=== PATIENT | female | born 1995 | race Caucasian/White ===

== ENCOUNTER 2017-04-14 23:39 | Emergency (ER) | payer SELFPAY ==
--- NOTE | 2017-04-15 01:13 | PDOC ---
History of Present Illness - General Chief Complaint: Edema Stated Complaint: FATIGUE, INFLAMATION Time Seen by Provider: 04/15/17 01:02 History Source: Patient - History of Present Illness Initial Comments: 04/15/17 01:52 Patient is a 21-year-old female with no past medical history who presents to the emergency department today complaining of swollen hands and feet, and pain in her extremities. Patient states that her symptoms started approximately 10: 30 tonight. This is never happened to her before. She states that her feet and hands are quite swollen and it hurts to stand. She also endorses itching, chills redness around her hands and feet. Patient denies new foods, shortness of breath, difficulty breathing, swelling of her throat, new medications. She also states that she has some abdominal pain. Denies fevers, cough, wheezing, shortness of breath, chest pain, palpitations, and nausea, vomiting, diarrhea, frequency, urgency and hematuria. She states her last menstrual cycle started on April 03. Past History - Travel Traveled outside of the country in the last 30 days: No Close contact w/someone who was outside of country & ill: No - Past Medical History Allergies/Adverse Reactions: Allergies Allergy/AdvReac Type Severity Reaction Status Date / Time No Known Allergies Allergy Verified 04/15/17 01:30 Home Medications: Ambulatory Orders Nitrofurantoin Monohyd/M-Cryst [Macrobid -] 100 mg PO BID #14 capsule 04/15/17 Review of Systems - Review of Systems Able to Perform ROS?: Yes Is the patient limited [place] proficient: No Constitutional: Yes: Chills, Malaise. No: Fever, Weakness Respiratory: No: Cough, Shortness of Breath, Wheezing Cardiac (ROS): No: Chest Pain, Palpitations ABD/GI: No: Diarrhea, Nausea, Vomiting : No: Burning, Dysuria, Discharge, Frequency, Flank Pain Musculoskeletal: Yes: Muscle Pain (generalized) Integumentary: Yes: Erythema (in patches on hands and feet), Pruritus (diffuse , arms and legs b/l) Neurological: No: Headache, Numbness, Paresthesia, Weakness *Physical Exam - Physical Exam Comments: 04/15/17 01:12 GENERAL: Well developed, well nourished. AAOX3. Mild distress, laying on exam bed breathing easily HEENT: Normocephalic, atraumatic. PERRLA, EOMI. No conjunctival pallor. Sclera are non- icteric. Moist mucous membranes. Oropharynx is clear. NECK: Supple. Full ROM. No JVD. Carotid pulses 2+ and symmetric, without bruits. No thyromegaly. No lymphadenopathy. CARDIOVASCULAR: Regular rate and rhythm. No murmurs, rubs, or gallops. Distal pulses are 2+ and symmetric. PULMONARY: No evidence of respiratory distress. Lungs clear to auscultation bilaterally. No wheezing, rales or rhonchi. ABDOMINAL: RUQ pain Soft. Non-tender. Non-distended. No rebound or guarding. No organomegaly. Normoactive bowel sounds. MUSCULOSKELETAL Normal range of motion at all joints. No bony deformities or tenderness. No CVA tenderness. EXTREMITIES: Hands and feet are grossly swollen 2+ tense edema with surrounding patches of erythema. No cyanosis. No clubbing. No calf tenderness. SKIN: Warm and dry. Normal capillary refill. No rashes. No jaundice. NEUROLOGICAL: Alert, awake, appropriate. Cranial nerves 2-12 intact. No deficits to light touch and temperature in face, upper extremities and lower extremities. No motor deficits in the in face, upper extremities and lower extremities. Normoreflexic in the upper and lower extremities. Normal speech. Toes are down- going bilaterally. Gait is normal without ataxia. PSYCHIATRIC: Cooperative. Good eye contact. Appropriate mood and affect. ED Treatment Course - LABORATORY CBC & Chemistry Diagram: 04/15/17 01:40 04/15/17 01:40 Medical Decision Making - Medical Decision Making 04/15/17 02:18 Patient is a 21-year-old female with no past medical history who presents to the emergency department today complaining of swollen hands and feet, and pain in her extremities. There is no known exposure to an allergen, making an ALLERGIC reaction less likely however patient does have swelling to hands and feet with itching. Cannot rule out liver disease or kidney disease at this time as source of her swelling and itching. 1.CBC, CMP, UA, UC, lipase 2.Benadryl 3.IV fluids, RUQ US in AM 4.reevaluate 04/15/17 03:21 UA shows positive leukocytes with WBC. Pt. does have a UTI at this time. Will treat for UTI as an out patient if patient is safe for discharge. Will wait for RUQ Us in AM for dispo decision. Pt. had minimal improvement with benadryl. *DC/Admit/Observation/Transfer Diagnosis at time of Disposition: UTI (urinary tract infection) Qualifiers: Urinary tract infection type: acute cystitis Hematuria presence: without hematuria Qualified Code(s): N30.00 - Acute cystitis without hematuria - Discharge Dispostion Disposition: HOME Condition at time of disposition: Improved - Prescriptions Prescriptions: Nitrofurantoin Monohyd/M-Cryst [Macrobid -] 100 mg PO BID #14 capsule - Patient Instructions Printed Discharge Instructions: DI for Urinary Tract Infection (UTI) Additional Instructions: Please take antibiotics as prescribed starting today. Follow bland soft diet for the next 3 days. May take Tylenol or Motrin for discomfort. Avoid excessive salt intake.
[2017-04-15] MEDS ORDERED: SODIUM CHLORIDE 1,000 ML IV STA (01:14)
[2017-04-15 01:29] VITALS: BMI 28.2
[2017-04-15 01:57] LABS: BASOPHIL 0.2 % (0-2.0); EOSINOPHIL 0.9 % (0-4.5); MCH 29.7 pg (25.7-33.7); MCHC 33.2 g/dl (32.0-36.0); MEAN CELL VOLUME 89.5 fl (80-96); MEAN PLT VOLUME 7.5 fl (7.5-11.1); NEUTROPHILS 68.1 % (42.8-82.8); PLATELET COUNT 316 K/MM3 (134-434); RDW 13.4 % (11.6-15.6); WHITE BLOOD COUNT 9.4 K/mm3 (4.0-10.0)
[2017-04-15 02:19] LABS: URINE APPEARANCE SLCLOUDY; URINE BILIRUBIN NEGATIVE (NEGATIVE); URINE BLOOD NEGATIVE (NEGATIVE); URINE COLOR YELLOW; URINE GLUCOSE (UA) NEGATIVE (NEGATIVE); URINE KETONE NEGATIVE (NEGATIVE); URINE NITRITE NEGATIVE (NEGATIVE); URINE PROTEIN NEGATIVE (NEGATIVE); URINE UROBILINOGEN NEGATIVE mg/dL (0.2-1.0)
[2017-04-15 02:27] LABS: URINE LEUK ESTERASE 1+ (NEGATIVE)
[2017-04-15 02:29] LABS: ALBUMIN 3.6 g/dl (3.4-5.0); ALK PHOS 68 U/L (45-117); ANION GAP 10 (8-16); BILIRUBIN,TOTAL 0.4 mg/dL (0.2-1.0); CALCIUM 8.9 mg/dL (8.5-10.1); CO2 26 mmol/L (21-32); CREATININE 0.5 mg/dL (0.55-1.02); GLUCOSE,RANDOM 82 mg/dL (74-106); SGOT/AST 12 U/L (15-37); SGPT/ALT 7 U/L (12-78); TOT PROT 6.5 g/dl (6.4-8.2)
[2017-04-15 02:30] LABS: URINE HYALINE CAST 3 /lpf; URINE MUCUS FEW; URINE RBC 1 /hpf (0-3); URINE WBC 13 /hpf (3-5)
--- NOTE | 2017-04-15 03:10 | PDOC ---
Attending Attestation - Resident Resident Name: ZaidasashaKelsie - ED Attending Attestation I have performed the following: I have examined & evaluated the patient, The case was reviewed & discussed with the resident, I agree w/resident's findings & plan, Exceptions are as noted - HPI HPI: 04/15/17 03:10 21-year-old female with no medical history presents to the emergency department with itchiness of her feet and hands and subjective feeling of lower extremity and bilateral hands nonpitting edema. Stated this began today. Denies any traveling or exposures to bugs or traveling through [place]. Denies fevers or chills. Patient was also developing right upper quadrant abdominal pain and had an episode of nausea or vomiting. Came into the ED for further evaluation. - Physicial Exam PE: 04/15/17 03:11 GENERAL: Awake, alert, and fully oriented, in no acute distress. HEAD: No signs of trauma EYES: PERRLA, EOMI, sclera anicteric, conjunctiva clear ENT: Auricles normal inspection, hearing grossly normal, nares patent, oropharynx clear without exudates. NECK: Normal ROM, supple, no lymphadenopathy, JVD, or masses LUNGS: Breath sounds equal, clear to auscultation bilaterally. No wheezes, and no crackles HEART: Regular rate and rhythm, normal S1 and S2, no murmurs, rubs or gallops ABDOMEN: TTP RUQ. Blackman positive. Soft, normoactive bowel sounds. No guarding , no rebound. No masses EXTREMITIES: Normal range of motion, no edema. No clubbing or cyanosis. No cords, erythema, or tenderness NEUROLOGICAL: Cranial nerves II through XII grossly intact. Normal speech, normal gait SKIN: Warm, Dry, normal turgor, no rashes or lesions noted. - Medical Decision Making 04/15/17 03:12 Vital Signs Temp Pulse Resp BP Pulse Ox 97.2 F L 77 16 104/73 98 04/15/17 01:25 04/15/17 01:25 04/15/17 01:25 04/15/17 01:25 04/15/17 01:25 The patient has been complaining about some itchiness which is unclear of the etiology. However, with the itchiness and a right upper quadrant pain with nausea, we'll need to rule out biliary pathology. We'll obtain a right upper quadrant ultrasound. Labs reviewed which demonstrates no acute findings. We'll reassess and dispose per imaging. 04/15/17 05:03 CBC, BMP 04/15/17 01:40 04/15/17 01:40 CMP Sodium 140 mmol/L (136-145) 04/15/17 01:40 Potassium 4.2 mmol/L (3.5-5.1) 04/15/17 01:40 Chloride 104 mmol/L (98-107) 04/15/17 01:40 Carbon Dioxide 26 mmol/L (21-32) 04/15/17 01:40 Anion Gap 10 (8-16) 04/15/17 01:40 BUN 15 mg/dL (7-18) 04/15/17 01:40 Creatinine 0.5 mg/dL (0.55-1.02) L 04/15/17 01:40 Creat Clearance w eGFR > 60 (>60) 04/15/17 01:40 Random Glucose 82 mg/dL (74-106) 04/15/17 01:40 Calcium 8.9 mg/dL (8.5-10.1) 04/15/17 01:40 Total Bilirubin 0.4 mg/dL (0.2-1.0) 04/15/17 01:40 AST 12 U/L (15-37) L 04/15/17 01:40 ALT 7 U/L (12-78) L 04/15/17 01:40 Alkaline Phosphatase 68 U/L (45-117) 04/15/17 01:40 Total Protein 6.5 g/dl (6.4-8.2) 04/15/17 01:40 Albumin 3.6 g/dl (3.4-5.0) 04/15/17 01:40 Lipase 131 U/L (73-393) 04/15/17 02:58 Urine Test Results Urine Color Yellow 04/15/17 02:06 Urine Appearance Slcloudy 04/15/17 02:06 Urine pH 6.0 (5.0-8.0) 04/15/17 02:06 Urine Protein Negative (NEGATIVE) 04/15/17 02:06 Urine Glucose (UA) Negative (NEGATIVE) 04/15/17 02:06 Urine Ketones Negative (NEGATIVE) 04/15/17 02:06 Urine Blood Negative (NEGATIVE) 04/15/17 02:06 Urine Nitrite Negative (NEGATIVE) 04/15/17 02:06 Urine Bilirubin Negative (NEGATIVE) 04/15/17 02:06 Ur Leukocyte Esterase 1+ (NEGATIVE) H 04/15/17 02:06 Urine RBC 1 /hpf (0-3) 04/15/17 02:06 Urine WBC 13 /hpf (3-5) 04/15/17 02:06 Ur Epithelial Cells Rare /hpf (FEW) 04/15/17 02:06 Urine Mucus Few 04/15/17 02:06 Patient's urine demonstrates 1+ leukocytes and 13 WBCs. Good the patient's discomfort be secondary to cystitis. We'll consider treatment for this patient' s symptoms. Laboratory demonstrates no acute findings. If the right upper quadrant ultrasound demonstrates no acute findings and the patient reports feeling better, we'll consider discharge patient with oral antibiotics and have patient follow up as an outpatient. 04/15/17 06:26 Pt reports feeling much better after the benadryl. Abdominal pain improved.
--- NOTE | 2017-04-15 07:20 | PDOC ---
*Physical Exam - Vital Signs Last Vital Signs Temp Pulse Resp BP Pulse Ox 97.2 F L 77 16 104/73 98 04/15/17 01:25 04/15/17 01:25 04/15/17 01:25 04/15/17 01:25 04/15/17 01:25 ED Treatment Course - LABORATORY CBC & Chemistry Diagram: 04/15/17 01:40 04/15/17 01:40 - ADDITIONAL ORDERS Additional order review: Laboratory Results 04/15/17 04/15/17 04/15/17 02:58 02:06 02:06 Sodium Potassium Chloride Carbon Dioxide Anion Gap BUN Creatinine Creat Clearance w eGFR Random Glucose Calcium Total Bilirubin AST ALT Alkaline Phosphatase Total Protein Albumin Lipase 131 Urine Color Yellow Urine Appearance Slcloudy Urine pH 6.0 Urine Protein Negative Urine Glucose (UA) Negative Urine Ketones Negative Urine Blood Negative Urine Nitrite Negative Urine Bilirubin Negative Urine Urobilinogen Negative Ur Leukocyte Esterase 1+ H Urine RBC 1 Urine WBC 13 Ur Epithelial Cells Rare Hyaline Casts 3 Urine Mucus Few Urine HCG, Qual Negative 04/15/17 01:40 Sodium 140 Potassium 4.2 Chloride 104 Carbon Dioxide 26 Anion Gap 10 BUN 15 Creatinine 0.5 L Creat Clearance w eGFR > 60 Random Glucose 82 Calcium 8.9 Total Bilirubin 0.4 AST 12 L ALT 7 L Alkaline Phosphatase 68 Total Protein 6.5 Albumin 3.6 Lipase Urine Color Urine Appearance Urine pH Urine Protein Urine Glucose (UA) Urine Ketones Urine Blood Urine Nitrite Urine Bilirubin Urine Urobilinogen Ur Leukocyte Esterase Urine RBC Urine WBC Ur Epithelial Cells Hyaline Casts Urine Mucus Urine HCG, Qual 04/15/17 01:40 RBC 4.59 MCV 89.5 MCHC 33.2 RDW 13.4 MPV 7.5 Neutrophils % 68.1 Lymphocytes % 25.5 Monocytes % 5.3 Eosinophils % 0.9 Basophils % 0.2 - Medications Given in the ED: ED Medications Discontinued Medications Generic Name Dose Route Start Last Admin Trade Name Freq PRN Reason Stop Dose Admin Diphenhydramine HCl 12.5 mg 04/15/17 01:47 04/15/17 02:20 Benadryl Injection - IVPUSH 04/15/17 01:48 12.5 mg ONCE ONE Administration Diphenhydramine HCl 25 mg 04/15/17 04:30 04/15/17 04:30 Benadryl Injection - IVPUSH 04/15/17 04:31 25 mg ONCE ONE Administration Sodium Chloride 1,000 mls @ 1,000 mls/hr 04/15/17 01:14 04/15/17 01:20 Normal Saline - IV 04/15/17 02:13 1,000 mls/hr ASDIR STA Administration Medical Decision Making - Medical Decision Making 04/15/17 07:19 Patient received in sign out from VERITO JUNIOR. Patient with complaints of swelling to extremities along with nausea. Patient had normal labs and responded well with Benadryl. Patient pending ultrasound. If negative will discharge home Laboratory Tests 04/15/17 02:06 Ur Leukocyte Esterase 1+ H Urine WBC 13 Urine culture was sent. Patient will be discharged home with Macrobid. No previous urine culture on file. 04/15/17 08:49 Ultrasound shows a small to moderate amount of bile versus sludge within the gallbladder lumen without dilatation of the common bile duct, definitive gallbladder wall thickening, or pericholecystic fluid. Patient will be discharged home with Macrobid. *DC/Admit/Observation/Transfer Diagnosis at time of Disposition: Urinary tract infection Qualifiers: Urinary tract infection type: acute cystitis Hematuria presence: without hematuria Qualified Code(s): N30.00 - Acute cystitis without hematuria - Discharge Dispostion Disposition: HOME Condition at time of disposition: Improved - Patient Instructions Printed Discharge Instructions: DI for Urinary Tract Infection (UTI) Additional Instructions: Please take antibiotics as prescribed starting today. Follow bland soft diet for the next 3 days. May take Tylenol or Motrin for discomfort. Avoid excessive salt intake.
[2017-04-15 09:16] VITALS: TEMP 98.4
[2017-04-15 09:17] VITALS: BP 108/71; PULSE 75
== END 2017-04-15 09:16 | disposition home or self-care (01) ==
LOC: JER 23:39
PROC: 3E0337Z Introduction of Electrolytic and Water Balance Substance into Peripheral Vein, Percutaneous Approach (ICD-10-PCS; principal; 2017-04-14)
PROC: 3E033GC Introduction of Other Therapeutic Substance into Peripheral Vein, Percutaneous Approach (ICD-10-PCS; 2017-04-14)
DX: N30.00 Acute cystitis without hematuria (principal)
CPT/HCPCS: 36415; 76705-TC; 80053; 81003; 81015; 83690; 84703; 85025; 87086; 99284-25

== ENCOUNTER 2017-10-10 21:26 | Emergency (ER) | payer OTHER ==
--- NOTE | 2017-10-10 21:37 | PDOC ---
Rapid Medical Evaluation Time Seen by Provider: 10/10/17 21:36 Medical Evaluation: Allergies Allergy/AdvReac Type Severity Reaction Status Date / Time No Known Allergies Allergy Verified 04/15/17 01:30 10/10/17 21:36 I have performed a brief in-person evaluation of this patient. The patient presents with a chief complaint of: left knee pain s/p slip and fall 1 week ago Pertinent physical exam findings: Left knee TTP on the anterior aspect infrapatellar. No deformity or swelling. I have ordered the following: UPT, xray, toradol The patient will proceed to the ED for further evaluation. Discharge Disposition - Diagnosis Knee pain, left - Referrals - Patient Instructions - Post Discharge Activity
[2017-10-10] MEDS ORDERED: KETOROLAC TROMETHAMINE 30 MG/1 ML VIAL IM ONE (21:38)
[2017-10-10 21:50] VITALS: BP 118/69; PULSE 71; TEMP 97.4; BMI 31.4
[2017-10-10] MEDS ORDERED: KETOROLAC TROMETHAMINE 30 MG/1 ML VIAL ONE (22:30)
--- NOTE | 2017-10-11 00:23 | PDOC ---
History of Present Illness - General History Source: Patient <Homero Pettit - Last Filed: 10/11/17 00:25> - General History Source: Patient Exam Limitations: No Limitations - History of Present Illness Initial Comments: 10/11/17 00:29 The patient is a 22 year old female, with no significant past medical history, who presents to the emergency department s/p mechanical fall at work yesterday. The patient states she tripped and fell directly onto her left knee. She reports pain and slight swelling to the left knee. She states she was ambulatory following the injury. She denies any other complaints. The patient denies chest pain, shortness of breath, headache and dizziness. The patient denies fever, chills, nausea, vomit, diarrhea and constipation. The patient denies dysuria, frequency, urgency and hematuria. Allergies: NKDA <Odette Camacho - Last Filed: 10/11/17 00:31> - General Chief Complaint: Pain Stated Complaint: FELL Time Seen by Provider: 10/10/17 21:36 Past History - Past Medical History Asthma: Yes COPD: No - Immunization History Immunization Up to Date: No - Suicide/Smoking/Psychosocial Hx Smoking History: Never smoked Have you smoked in the past 12 months: No Information on smoking cessation initiated: No Hx Alcohol Use: No Drug/Substance Use Hx: No Substance Use Type: None <Samanta Pettitan - Last Filed: 10/11/17 00:25> <Odette Camacho - Last Filed: 10/11/17 00:31> - Past Medical History Allergies/Adverse Reactions: Allergies Allergy/AdvReac Type Severity Reaction Status Date / Time No Known Allergies Allergy Verified 10/10/17 21:47 Home Medications: Ambulatory Orders Ibuprofen 800 mg PO TID #30 tablet 10/11/17 Review of Systems - Review of Systems Able to Perform ROS?: Yes Comments:: 10/11/17 00:29 CONSTITUTIONAL: Absent: fever, no chills, no fatigue EYES: Absent: visual changes ENT: Absent: ear pain, no sore throat CARDIOVASCULAR: Absent: chest pain, no palpitations RESPIRATORY: Absent: cough, no SOB GI: Absent: abdominal pain, no nausea, no vomiting, no constipation, no diarrhea GENITOURINARY: Absent: dysuria, no frequency, no hematuria MUSCULOSKELETAL: (+) left knee pain and swelling. Absent: back pain, no myalgia SKIN: Absent: rash NEURO: Absent: headache <Odette Camacho - Last Filed: 10/11/17 00:31> *Physical Exam - Vital Signs Last Vital Signs Temp Pulse Resp BP Pulse Ox 97.4 F L 71 20 118/69 99 10/10/17 21:47 10/10/17 21:47 10/10/17 21:47 10/10/17 21:47 10/10/17 21:47 <Homero Pettit - Last Filed: 10/11/17 00:25> - Vital Signs Last Vital Signs Temp Pulse Resp BP Pulse Ox 97.4 F L 71 20 118/69 99 10/10/17 21:47 10/10/17 21:47 10/10/17 21:47 10/10/17 21:47 10/10/17 21:47 - Physical Exam Comments: 10/11/17 00:30 GENERAL: Well-appearing, well-nourished. No apparent distress. HEENT: Normocephalic, atraumatic. PERRL, EOM intact. CARDIOVASCULAR: Normal S1, S2. Regular rate and rhythm. PULMONARY: Clear to auscultation bilaterally. ABDOMEN: Soft, non-distended, non-tender. EXTREMITIES: (+) Small abrasion and mild swelling to left knee, no deformity, no joint laxity. Normal ROM in all four extremities. SKIN: (+) abrasion to left knee. Warm, dry. No rash NEUROLOGICAL: No focal neurological deficits. <Odette Camacho - Last Filed: 10/11/17 00:31> ED Treatment Course - ADDITIONAL ORDERS Additional order review: Laboratory Results 10/10/17 22:15 Urine HCG, Qual Negative - Medications Given in the ED: ED Medications Discontinued Medications Generic Name Dose Route Start Last Admin Trade Name Freq PRN Reason Stop Dose Admin Ketorolac Tromethamine 30 mg 10/10/17 21:38 10/10/17 22:40 Toradol Injection - IM 10/10/17 21:39 30 mg ONCE ONE Administration <Homero Pettit - Last Filed: 10/11/17 00:25> - ADDITIONAL ORDERS Additional order review: Laboratory Results 10/10/17 22:15 Urine HCG, Qual Negative - Medications Given in the ED: ED Medications Discontinued Medications Generic Name Dose Route Start Last Admin Trade Name Rukhsana PRN Reason Stop Dose Admin Ketorolac Tromethamine 30 mg 10/10/17 21:38 10/10/17 22:40 Toradol Injection - IM 10/10/17 21:39 30 mg ONCE ONE Administration <Odette Camacho - Last Filed: 10/11/17 00:31> Medical Decision Making - Medical Decision Making 10/11/17 00:25 Dr. Pettit: The scribe's documentation has been prepared under my direction and personally reviewed by me in its entirery. I confirm that the note above accurately reflects all work, treatment, procedures, and medical decision making performed by me. <Homero Pettit - Last Filed: 10/11/17 00:25> *DC/Admit/Observation/Transfer - Discharge Dispostion Admit: No <Homero Pettit - Last Filed: 10/11/17 00:25> - Attestations Scribe Attestion: 10/11/17 00:31 Documentation prepared by Odette Camacho, acting as medical reimbursement manager for Homero Pettit DO. <Odette Camacho - Last Filed: 10/11/17 00:31> Diagnosis at time of Disposition: Knee pain, left, Contusion - Discharge Dispostion Disposition: HOME Condition at time of disposition: Stable - Prescriptions Prescriptions: Ibuprofen 800 mg PO TID #30 tablet - Patient Instructions Printed Discharge Instructions: DI for Contusion, DI for Knee Pain Print Language: GERMAN
== END 2017-10-11 00:41 | disposition home or self-care (01) ==
LOC: JER 21:26 → JERFT 21:26 → JER 10-11 00:41
PROC: 3E0233Z Introduction of Anti-inflammatory into Muscle, Percutaneous Approach (ICD-10-PCS; principal; 2017-10-10)
DX: S80.02XA Contusion of left knee, initial encounter (principal); S80.212A Abrasion, left knee, initial encounter; W19.XXXA Unspecified fall, initial encounter; Y93.89 Activity, other specified; Y92.89 Other specified places as the place of occurrence of the external cause; Y99.8 Other external cause status
CPT/HCPCS: 73562-TC-LT-FY; 84703; 96372; 99281-25

== ENCOUNTER 2017-11-16 19:50 | Emergency (ER) | payer OTHER ==
[2017-11-16 20:16] VITALS: BP 142/82; PULSE 84; TEMP 98; BMI 28.3
--- NOTE | 2017-11-16 20:18 | PDOC ---
Rapid Medical Evaluation Chief Complaint: Pain Time Seen by Provider: 11/16/17 20:12 Medical Evaluation: Allergies Allergy/AdvReac Type Severity Reaction Status Date / Time No Known Allergies Allergy Verified 10/10/17 21:47 11/16/17 20:13 The patient presents with a chief complaint of: Abdominal pain for three days. Pt is . LMP 10/05/17. Denies bleeding. Pain to LLQ and suprapubic region I have performed a brief in-person evaluation of this patient; Pertinent physical exam findings: ambulatory, in no respiratory distress. TTP suprapubic region, LLQ. I have ordered the following: CBC, type and screen, ultrasound betahcg, urine culture,UA The patient will proceed to the ED for further evaluation.
[2017-11-16 20:58] LABS: BASO % 0.4 % (0-2.0); EOS % 1.2 % (0-4.5); HEMATOCRIT 37.9 % (32.4-45.2); HEMOGLOBIN 12.8 GM/dL (10.7-15.3); LYMPH % 34.3 % (8-40); MCH 30.2 pg (25.7-33.7); MCHC 33.7 g/dl (32.0-36.0); MEAN CELL VOLUME 89.6 fl (80-96); MEAN PLT VOLUME 7.3 fl (7.5-11.1); MONO % 8.3 % (3.8-10.2); NEUT % 55.8 % (42.8-82.8); PLATELET COUNT 333 K/MM3 (134-434); RBC 4.23 M/mm3 (3.60-5.2); RDW 13.8 % (11.6-15.6); WHITE BLOOD COUNT 7.5 K/mm3 (4.0-10.0)
[2017-11-16 21:05] LABS: URINE APPEARANCE TURBID; URINE BILIRUBIN NEGATIVE (<2.0 mg/dL); URINE BLOOD NEGATIVE (NEGATIVE); URINE COLOR YELLOW; URINE GLUCOSE (UA) NEGATIVE (NEGATIVE); URINE KETONE NEGATIVE (NEGATIVE); URINE LEUK ESTERASE NEGATIVE (NEGATIVE); URINE NITRITE NEGATIVE (NEGATIVE); URINE PROTEIN NEGATIVE (NEGATIVE)
[2017-11-16 21:23] LABS: ALBUMIN 3.6 g/dl (3.4-5.0); ALK PHOS 64 U/L (45-117); ANION GAP 5 (8-16); BILIRUBIN,TOTAL 0.2 mg/dL (0.2-1.0); BLOOD UREA NITROGEN 12 mg/dL (7-18); CALCIUM 8.6 mg/dL (8.5-10.1); CHLORIDE 106 mmol/L (98-107); CO2 25 mmol/L (21-32); CREATININE 0.5 mg/dL (0.55-1.02); GLUCOSE,RANDOM 89 mg/dL (74-106); POTASSIUM 4.3 mmol/L (3.5-5.1); SGOT/AST 28 U/L (15-37); SGPT/ALT 8 U/L (12-78); SODIUM 136 mmol/L (136-145); TOT PROT 6.9 g/dl (6.4-8.2)
[2017-11-16] MEDS ORDERED: ACETAMINOPHEN 325 MG TABLET (FP) PO ONE (21:47)
[2017-11-16] MEDS ORDERED: CEPHALEXIN MONOHYDRATE 500 MG CAPSULE (UD) PO ONE (21:47)
--- NOTE | 2017-11-16 21:47 | PDOC ---
History of Present Illness - General History Source: Patient, Old Records Exam Limitations: No Limitations - History of Present Illness Initial Comments: 11/16/17 22:25 Patient is a 22 year old female with a significant past medical history of Asthma, who presents to the ED with complaints of who presents to the ED with complaints of pelvic pain that began 1 week ago. Patient reports experiencing gradual cramping like pelvic pain that began 1 week ago while at home and has shown no signs of subsiding. She reports experiencing associated symptoms of dysuria that began 1 week ago. Patient reports taking a test yesterday afternoon and reports it came back positive, prompting her to come into the ED for further evaluation. Denies chest pain, Sob. Denies nausea, vomiting. Denies fevers, chills. Denies contact with sick individuals, out of state travelling. Denies hematuria, diarrhea, constipation. Denies vaginal bleeding. Denies change in appetite. Denies any other symptoms. Allergies: None Social History: No smoking. No alcohol. No illicit drugs. Surgical History: None PMD: None <Darren Brooks - Last Filed: 11/16/17 22:25> - General History Source: Patient <CurtHomero bernal - Last Filed: 11/16/17 23:37> - General Chief Complaint: Pain Stated Complaint: ABDOMINAL PAIN Time Seen by Provider: 11/16/17 20:12 Past History <Darren Brooks - Last Filed: 11/16/17 22:25> - Past Medical History Asthma: Yes COPD: No - Immunization History Immunization Up to Date: No - Suicide/Smoking/Psychosocial Hx Smoking History: Never smoked Have you smoked in the past 12 months: No Hx Alcohol Use: No Drug/Substance Use Hx: No Substance Use Type: None <Homero Pettit - Last Filed: 11/16/17 23:37> - Past Medical History Allergies/Adverse Reactions: Allergies Allergy/AdvReac Type Severity Reaction Status Date / Time No Known Allergies Allergy Verified 11/16/17 23:18 Home Medications: Ambulatory Orders Ibuprofen 800 mg PO TID #30 tablet 10/11/17 Cephalexin Monohydrate [Keflex -] 500 mg PO BID #14 capsule 11/16/17 Review of Systems - Review of Systems Able to Perform ROS?: Yes Comments:: 11/16/17 22:25 CONSTITUTIONAL: Absent: fever, no chills, no fatigue EYES: Absent: visual changes ENT: Absent: ear pain, no sore throat CARDIOVASCULAR: Absent: chest pain, no palpitations RESPIRATORY: Absent: cough, no SOB GI: Absent: abdominal pain, no nausea, no vomiting, no constipation, no diarrhea GENITOURINARY: +Pelvic pain. +Dysuria. Absent: no frequency, no hematuria MUSCULOSKELETAL: Absent: back pain, no arthralgia, no myalgia SKIN: Absent: rash <CeciliaDarren - Last Filed: 11/16/17 22:25> *Physical Exam - Vital Signs Last Vital Signs Temp Pulse Resp BP Pulse Ox 98 F 84 18 142/82 99 11/16/17 20:12 11/16/17 20:12 11/16/17 20:12 11/16/17 20:12 11/16/17 20:12 - Physical Exam Comments: 11/16/17 22:25 GENERAL: Well-appearing, well-nourished. No apparent distress. HEENT: Normocephalic, atraumatic. PERRL, EOM intact. CARDIOVASCULAR: Normal S1, S2. Regular rate and rhythm. PULMONARY: Clear to auscultation bilaterally. ABDOMEN: +Superpubic tenderness. Soft, non-distended, EXTREMITIES: Normal ROM in all four extremities. No gross deformities. SKIN: Warm, dry. No rash NEUROLOGICAL: No focal neurological deficits. <CeciliaDarren - Last Filed: 11/16/17 22:25> - Vital Signs Last Vital Signs Temp Pulse Resp BP Pulse Ox 98 F 84 18 142/82 99 11/16/17 20:12 11/16/17 20:12 11/16/17 20:12 11/16/17 20:12 11/16/17 20:12 <Homero Pettit - Last Filed: 11/16/17 23:37> ED Treatment Course - LABORATORY CBC & Chemistry Diagram: 11/16/17 20:41 11/16/17 20:41 - ADDITIONAL ORDERS Additional order review: Laboratory Results 11/16/17 11/16/17 11/16/17 20:41 20:41 20:41 Sodium 136 Potassium 4.3 Chloride 106 Carbon Dioxide 25 Anion Gap 5 L BUN 12 Creatinine 0.5 L Creat Clearance w eGFR > 60 Random Glucose 89 Calcium 8.6 Total Bilirubin 0.2 D AST 28 ALT 8 L Alkaline Phosphatase 64 Total Protein 6.9 Albumin 3.6 Beta HCG, Quant 1763.5 Urine Color Urine Appearance Urine pH Ur Specific [place] Urine Protein Urine Glucose (UA) Urine Ketones Urine Blood Urine Nitrite Urine Bilirubin Urine Urobilinogen Ur Leukocyte Esterase Blood Type A POSITIVE Antibody Screen Negative 11/16/17 20:41 Sodium Potassium Chloride Carbon Dioxide Anion Gap BUN Creatinine Creat Clearance w eGFR Random Glucose Calcium Total Bilirubin AST ALT Alkaline Phosphatase Total Protein Albumin Beta HCG, Quant Urine Color Yellow Urine Appearance Turbid Urine pH 7.0 Ur Specific [place] 1.024 Urine Protein Negative Urine Glucose (UA) Negative Urine Ketones Negative Urine Blood Negative Urine Nitrite Negative Urine Bilirubin Negative Urine Urobilinogen 2.0 H Ur Leukocyte Esterase Negative Blood Type Antibody Screen 11/16/17 20:41 RBC 4.23 MCV 89.6 MCHC 33.7 RDW 13.8 MPV 7.3 L Neutrophils % 55.8 Lymphocytes % 34.3 D Monocytes % 8.3 Eosinophils % 1.2 Basophils % 0.4 <Darren Brooks - Last Filed: 11/16/17 22:25> - LABORATORY CBC & Chemistry Diagram: 11/16/17 20:41 11/16/17 20:41 - ADDITIONAL ORDERS Additional order review: Laboratory Results 11/16/17 11/16/17 20:41 20:41 Sodium 136 Potassium 4.3 Chloride 106 Carbon Dioxide 25 Anion Gap 5 L BUN 12 Creatinine 0.5 L Creat Clearance w eGFR > 60 Random Glucose 89 Calcium 8.6 Total Bilirubin 0.2 D AST 28 ALT 8 L Alkaline Phosphatase 64 Total Protein 6.9 Albumin 3.6 Urine Color Yellow Urine Appearance Turbid Urine pH 7.0 Ur Specific [place] 1.024 Urine Protein Negative Urine Glucose (UA) Negative Urine Ketones Negative Urine Blood Negative Urine Nitrite Negative Urine Bilirubin Negative Urine Urobilinogen 2.0 H Ur Leukocyte Esterase Negative 11/16/17 20:41 RBC 4.23 MCV 89.6 MCHC 33.7 RDW 13.8 MPV 7.3 L Neutrophils % 55.8 Lymphocytes % 34.3 D Monocytes % 8.3 Eosinophils % 1.2 Basophils % 0.4 <Homero Pettit - Last Filed: 11/16/17 23:37> Medical Decision Making - Medical Decision Making 11/16/17 23:32 Dr. Pettit: The scribe's documentation has been prepared under my direction and personally reviewed by me in its entirery. I confirm that the note above accurately reflects all work, treatment, procedures, and medical decision making performed by me. <Homero Pettit - Last Filed: 11/16/17 23:37> *DC/Admit/Observation/Transfer - Attestations Scribe Attestion: 11/16/17 22:26 Documentation prepared by Darren Brooks, acting as medical aides teacher for Homero Pettit MD/DO. <Darren Brooks - Last Filed: 11/16/17 22:25> - Discharge Dispostion Admit: No <Homero Pettit - Last Filed: 11/16/17 23:37> Diagnosis at time of Disposition: Qualifiers: Weeks of gestation: less than 8 weeks Qualified Code(s): Z3A.01 - Less than 8 weeks gestation of - Discharge Dispostion Disposition: HOME Condition at time of disposition: Stable - Prescriptions Prescriptions: Cephalexin Monohydrate [Keflex -] 500 mg PO BID #14 capsule - Referrals Referrals: David Rodriguez MD [Staff Physician] - Raeann Saravia MD [Staff Physician] - - Patient Instructions Printed Discharge Instructions: Human Chorionic Gonadotropin, Medications and Additional Instructions: Please follow up with the steersman that you were referred to for re-evaluation of the to see if things will improve or not. Take medication as directed. Blood hormone level and Ultrasound need to be repeated every two days. Take Tylenol only every 6 hours for pain. Print Language: VIET[place]ESE
[2017-11-16] MEDS ORDERED: ACETAMINOPHEN 325 MG TABLET (FP) ONE (23:15)
[2017-11-16] MEDS ORDERED: CEPHALEXIN MONOHYDRATE 250 MG CAPSULE (FP) ONE (23:15)
== END 2017-11-16 23:41 | disposition home or self-care (01) ==
LOC: JER 19:50
DX: O26.891 Other specified pregnancy related conditions, first trimester (principal); R10.30 Lower abdominal pain, unspecified; Z3A.01 Less than 8 weeks gestation of pregnancy
CPT/HCPCS: 36415; 76817-TC; 80053; 81003; 84702; 85025; 86850; 86900; 86901; 87086; 87186; 99282-25

== ENCOUNTER 2017-11-18 15:32 | Emergency (ER) | payer OTHER ==
[2017-11-18 15:37] VITALS: BP 130/77; PULSE 79; TEMP 97.7; BMI 30.5
--- NOTE | 2017-11-18 17:05 | PDOC ---
Attending Attestation - HPI HPI: 11/18/17 17:40 CC: Lower Abdominal Pain HPI: The patient is a 22 year old 5 weeks female A0 , with significant past medical history of asthma, who presents to the emergency department with, four days lower quadrant abdominal pain. She describes her pain as a intermittent, cramping, and ranking at a 9/10. She reports her abdominal pain to worsen when standing and laying down. She reports her pain to improve when leaning forward. As per patient, the pain worsened three days ago when she reported to the ED and was prescribed Cephalexin. She denies recent fevers, chills, headache or dizziness. She denies recent nausea, vomit, diarrhea or constipation. She denies recent dysuria, frequency, urgency or hematuria. She denies recent chest pain or shortness of breath. Allergies: NKA Past surgical history: None reported. - Physicial Exam PE: 11/18/17 17:40 Vitals: Triage vital signs reviewed General Appearance: No acute distress, well nourished, well developed Head: Atraumatic Chest Wall: Nontender Cardiac: Regular rate and rhythm, no murmurs, no rubs, no gallops Lungs: Clear to auscultation bilateral, good air movement bilaterally (+)Abdomen: + Left, lower quadrant pain. Soft, nondistended, normal bowel sounds Genitourinary: Rectal: Exam deferred Extremities: Full range of motion to all extremities, no cyanosis, clubbing, or edema Skin: Warm and dry, no rashes or lesions, no rash, no petechiae Neuro: AOX3 Psych: Normal mood, normal affect - Medical Decision Making EXAM: OB ultrasound less than 14 weeks and transvaginal ultrasound, OB and duplex scan pelvis HISTORY: . Abdominal pain. COMPARISON: OB ultrasound dated November 16, 2017 FINDINGS: 1. There is demonstration of an intrauterine gestational sac with a small yolk sac. There is no demonstration of a pole at this time. 2. Arterial and venous flow is demonstrated in both ovaries utilizing color flow and Doppler waveform imaging. There is no evidence of ovarian torsion. 3. There is redemonstration of 2 right ovarian cysts. These do not appear to be significantly changed in size in the interval. 4. No free fluid is demonstrated in the pelvis. Read by: Gisel Moore MD <Cheryl Denise Last Filed: 11/18/17 22:49> - Resident Resident Name: Elbert Khan - ED Attending Attestation I have performed the following: I have examined & evaluated the patient, The case was reviewed & discussed with the resident, I agree w/resident's findings & plan, Exceptions are as noted - Medical Decision Making 11/18/17 18:29 22 years old approximately 5 weeks by ultrasound findings presents to the ED with 1 week history of intermittent lower abdominal discomfort mostly in the left lower quadrant. Pain comes and goes was seen in the emergency department 2 days ago No fever no vomiting intermittent lower abdominal pain differential diagnosis includes cyst less likely torsion very unlikely ectopic given positive gestational sac and yolk sac on previous ultrasound We'll recheck labs urine repeat ultrasound Tylenol for pain and reassess. Reevaluation: Repeat abdominal evaluation no pain at this time patient eating asking to go home At this time given no ultrasound findings no fever no white count low suspicion for acute surgical process Patient will follow-up with her TRIM CARPENTER on Monday. She'll return to the emergency department for any fever severe returning abdominal pain heavy vaginal bleeding or for any concerns. <Giacomo Crum - Last Filed: 11/18/17 23:15> Attestations - Attestations 11/18/17 17:42 Documentation prepared by Cheryl Denise, acting as medical technologist microbiology for Giacomo Crum MD. <Cheryl Denise - Last Filed: 11/18/17 22:49>
--- NOTE | 2017-11-18 17:37 | PDOC ---
History of Present Illness - General History Source: Patient Exam Limitations: Language Barrier - History of Present Illness Initial Comments: 11/18/17 17:32 22 year old female 5 wek 4 days ,with pmhx of asthma who presented to the ED today with 4 days history of lower abdominal pain that started on Monday and worsen on , radiating to vaginal area , comes and goes, worsen when she is laying down or when she get up , she denies any fever, chills , N/V/D/C, She denies any dizziness and lightheadedness, she reports some headache bilateral comes and goes. she denies any chest pain , sob , cough or heart racing , she denies nay urinary symptoms , dysuria ,hematuria. LMP period October 04 . Pmhx <Elbert Khan - Last Filed: 11/18/17 22:25> <Giacomo Crum - Last Filed: 11/18/17 22:45> - General Chief Complaint: Pain Stated Complaint: ABD PAIN (6 WKS ) Time Seen by Provider: 11/18/17 15:54 Past History - Past Medical History Asthma: Yes COPD: No - Immunization History Immunization Up to Date: No - Suicide/Smoking/Psychosocial Hx Smoking History: Never smoked Have you smoked in the past 12 months: No Hx Alcohol Use: No Drug/Substance Use Hx: No Substance Use Type: None <Elbert Khan - Last Filed: 11/18/17 22:25> <Giacomo Crum - Last Filed: 11/18/17 22:45> - Past Medical History Allergies/Adverse Reactions: Allergies Allergy/AdvReac Type Severity Reaction Status Date / Time No Known Allergies Allergy Verified 11/18/17 15:37 Home Medications: Ambulatory Orders NK [No Known Home Medication] 11/18/17 *Physical Exam - Vital Signs Last Vital Signs Temp Pulse Resp BP Pulse Ox 97.7 F 79 18 130/77 99 11/18/17 15:34 11/18/17 15:34 11/18/17 15:34 11/18/17 15:34 11/18/17 15:34 <Elbert Khan - Last Filed: 11/18/17 22:25> - Vital Signs Last Vital Signs Temp Pulse Resp BP Pulse Ox 97.7 F 79 18 130/77 99 11/18/17 15:34 11/18/17 15:34 11/18/17 15:34 11/18/17 15:34 11/18/17 15:34 <Giacomo Crum - Last Filed: 11/18/17 22:45> ED Treatment Course - LABORATORY CBC & Chemistry Diagram: 11/18/17 17:51 11/18/17 17:51 - RADIOLOGY Radiology Studies Ordered: Category Date Time Status TRANSVAGINAL ULTRASOUND US [US] Stat Ultrasound 11/18/17 17:21 Ordered <Elbert Khan - Last Filed: 11/18/17 22:25> - LABORATORY CBC & Chemistry Diagram: 11/18/17 17:51 11/18/17 17:51 - ADDITIONAL ORDERS Additional order review: Laboratory Results 11/18/17 11/18/17 11/18/17 19:10 17:51 17:51 Sodium 139 Potassium 4.6 Chloride 107 Carbon Dioxide 27 Anion Gap 5 L BUN 10 Creatinine 0.5 L Creat Clearance w eGFR > 60 Random Glucose 99 Calcium 9.0 Total Bilirubin 0.2 AST 38 H ALT 17 Alkaline Phosphatase 62 Total Protein 7.1 Albumin 3.8 Lipase 130 Beta HCG, Quant 3964.6 Urine Color Yellow Urine Appearance Cloudy Urine pH 7.0 Ur Specific [place] 1.016 Urine Protein Negative Urine Glucose (UA) Negative Urine Ketones Negative Urine Blood Negative Urine Nitrite Negative Urine Bilirubin Negative Urine Urobilinogen Negative Ur Leukocyte Esterase Negative 11/18/17 17:51 Sodium Potassium Chloride Carbon Dioxide Anion Gap BUN Creatinine Creat Clearance w eGFR Random Glucose Calcium Total Bilirubin AST ALT Alkaline Phosphatase Total Protein Albumin Lipase Beta HCG, Quant Urine Color Yellow Urine Appearance Cloudy Urine pH 7.0 Ur Specific [place] 1.016 Urine Protein Negative Urine Glucose (UA) Negative Urine Ketones Negative Urine Blood Negative Urine Nitrite Negative Urine Bilirubin Negative Urine Urobilinogen Negative Ur Leukocyte Esterase Negative 11/18/17 17:51 RBC 4.44 MCV 89.0 MCHC 33.8 RDW 13.8 MPV 7.0 L Neutrophils % 60.3 Lymphocytes % 31.4 Monocytes % 6.8 Eosinophils % 1.2 Basophils % 0.3 <Gaicomo Crum - Last Filed: 11/18/17 22:45> *DC/Admit/Observation/Transfer - Discharge Dispostion Admit: No <Elbert Khan - Last Filed: 11/18/17 22:25> - Discharge Dispostion Admit: No <Giacomo Crum - Last Filed: 11/18/17 22:45> Diagnosis at time of Disposition: Threatened in early - Discharge Dispostion Disposition: HOME - Patient Instructions Additional Instructions: You presented to the Emergency room due to lower abdominal pain , Please folow up as out patient with your Glass Cleaning Machine Tender doctor on Monday. Please stop using Keflex there is no need for antipiotics for now If you develop sever bleeding more than 3 cups or sever abdominal pain fever, chills m please return to ED as soon as possible.
[2017-11-18 18:19] LABS: BASO % 0.3 % (0-2.0); EOS % 1.2 % (0-4.5); HEMATOCRIT 39.5 % (32.4-45.2); HEMOGLOBIN 13.3 GM/dL (10.7-15.3); LYMPH % 31.4 % (8-40); MCHC 33.8 g/dl (32.0-36.0); MONO % 6.8 % (3.8-10.2); NEUT % 60.3 % (42.8-82.8); PLATELET COUNT 356 K/MM3 (134-434); RBC 4.44 M/mm3 (3.60-5.2); RDW 13.8 % (11.6-15.6); WHITE BLOOD COUNT 8.5 K/mm3 (4.0-10.0)
[2017-11-18 18:22] LABS: URINE APPEARANCE CLOUDY; URINE BILIRUBIN NEGATIVE (<2.0 mg/dL); URINE BLOOD NEGATIVE (NEGATIVE); URINE COLOR YELLOW; URINE GLUCOSE (UA) NEGATIVE (NEGATIVE); URINE KETONE NEGATIVE (NEGATIVE); URINE LEUK ESTERASE NEGATIVE (NEGATIVE); URINE NITRITE NEGATIVE (NEGATIVE); URINE PROTEIN NEGATIVE (NEGATIVE); URINE UROBILINOGEN NEGATIVE mg/dL (0.2-1.0)
[2017-11-18 19:07] LABS: ALBUMIN 3.8 g/dl (3.4-5.0); ANION GAP 5 (8-16); BILIRUBIN,TOTAL 0.2 mg/dL (0.2-1.0); BLOOD UREA NITROGEN 10 mg/dL (7-18); CHLORIDE 107 mmol/L (98-107); CO2 27 mmol/L (21-32); CREATININE 0.5 mg/dL (0.55-1.02); GLUCOSE,RANDOM 99 mg/dL (74-106); LIPASE 130 U/L (73-393); POTASSIUM 4.6 mmol/L (3.5-5.1); SGOT/AST 38 U/L (15-37); SGPT/ALT 17 U/L (12-78); SODIUM 139 mmol/L (136-145); TOT PROT 7.1 g/dl (6.4-8.2)
[2017-11-18 19:08] LABS: ALK PHOS 62 U/L (45-117)
[2017-11-18 19:20] LABS: URINE APPEARANCE CLOUDY; URINE BILIRUBIN NEGATIVE (<2.0 mg/dL); URINE BLOOD NEGATIVE (NEGATIVE); URINE COLOR YELLOW; URINE GLUCOSE (UA) NEGATIVE (NEGATIVE); URINE KETONE NEGATIVE (NEGATIVE); URINE LEUK ESTERASE NEGATIVE (NEGATIVE); URINE NITRITE NEGATIVE (NEGATIVE); URINE PROTEIN NEGATIVE (NEGATIVE); URINE UROBILINOGEN NEGATIVE mg/dL (0.2-1.0)
--- NOTE | 2017-11-19 11:01 | PDOC ---
Patient Follow-up (Call Back) - Post ED Follow - Up Condition at time of discharge: Good Disposition at time of original discharge: HOME Reason for Call Back: Abnwl. Microbiology (10-20K BHS. Sensitivities pending Pt As per medical records, patient was told by ED attending to discontinue Keflex she was already on. I contacted patient who states she is feeling well. No dysuria/flank pain/n/v/f/c. States she still have Keflex at home. Told her she needs to continue meds because she has a urine infection which can cause miscarriage if left untreated Pt has OB f/u on Monday Will f/u on final ucx)
--- NOTE | 2017-11-21 07:47 | PDOC ---
Patient Follow-up (Call Back) - Post ED Follow - Up Condition at time of discharge: Good Disposition at time of original discharge: HOME Reason for Call Back: Abnwl. Microbiology (No sensitivity at this time as there is now no growth listed on the culture. Pt. to continue taking abx for presumed strep on old culture report.)
== END 2017-11-18 23:00 | disposition home or self-care (01) ==
LOC: JER 15:32
DX: O26.891 Other specified pregnancy related conditions, first trimester (principal); O20.0 Threatened abortion; Z3A.01 Less than 8 weeks gestation of pregnancy
CPT/HCPCS: 36415; 76830-TC; 80053; 81003; 83690; 84702; 85025; 87086; 99284-25

== ENCOUNTER 2018-10-26 23:02 | Emergency (ER) | payer SELFPAY ==
[2018-10-26 23:15] VITALS: BP 109/67; PULSE 78; TEMP 97.9; BMI 29.0
[2018-10-27] MEDS ORDERED: LORATADINE 10 MG TABLET PO ONE (00:23)
[2018-10-27] MEDS ORDERED: RANITIDINE HCL 150 MG TABLET (FP) PO ONE (00:23)
--- NOTE | 2018-10-27 00:29 | PDOC ---
History of Present Illness - General Chief Complaint: Hives Stated Complaint: DIARRHEA/RASH Time Seen by Provider: 10/26/18 23:40 History Source: Patient Exam Limitations: No Limitations - History of Present Illness Initial Comments: 10/27/18 00:24 HISTORY OF PRESENT ILLNESS: 23-year-old woman denies medical history presents emergency department for evaluation of rash to her face after eating at a [place] buffet today. Patient reports she was eating seafood when she developed itchy rash to her face primarily on the cheeks. She denies any difficulty swallowing, drooling, shortness of breath, difficulty breathing or audible wheezing. Patient does have a history of peanut ALLERGY In his head selfish multiple times in the past without incident. No recent travel or sick contacts. PAST MEDICAL HISTORY: Denies past medical history SURGICAL HISTORY: Denies ALLERGIES: Peanuts, NKDA Pt is . REVIEW OF SYSTEMS General/Constitutional: Denies fever or chills. Denies weakness, weight change. HEENT: Denies change in vision. Denies ear pain or discharge. Denies sore throat. Cardiovascular: Denies chest pain or shortness of breath. Respiratory: Denies cough, wheezing, or hemoptysis. Gastrointestinal: Denies nausea, vomiting, diarrhea or constipation. Denies rectal bleeding. Genitourinary: Denies dysuria, frequency, or change in urination. Musculoskeletal: Denies joint or muscle swelling or pain. Denies neck or back pain. Skin and breasts: see HPI Neurologic: Denies headache, vertigo, loss of consciousness, or loss of sensation. Psychiatric: Denies depression or anxiety. Endocrine: Denies increased thirst. Denies abnormal weight change. Hematologic/Lymphatic: Denies anemia, easy bleeding, or history of blood clots. Allergic/Immunologic: Denies hives or skin allergy. Denies latex allergy. PHYSICAL EXAM General Appearance: Well-appearing, appropriately dressed. No apparent distress , no intoxication. HEENT: EOMI, PERRLA, normal ENT inspection, normal voice, TMs normal, pharynx normal. No conjunctival pallor. No photophobia, scleral icterus. Neck: Supple. Trachea midline. No tenderness, rigidity, carotid bruit, stridor , lymphadenopathy, or thyromegaly. Respiratory/Chest: Lungs CTAB. No shortness of breath, chest tenderness, respiratory distress, accessory muscle use. No crackles, rales, rhonchi, stridor , wheezing, dullness Cardiovascular: RRR. S1, S2. No JVD, murmur, bradycardia, tachycardia. Vascular Pulses: Dorsalis-Pedis (R): 2+, Dorsalis-Pedis (L): 2+ Gastrointestinal/Abdominal: Normal bowel sounds. Abdomen soft, non-distended. No tenderness or rebound tenderness. No organomegaly, pulsatile mass, guarding, hernia, hepatomegaly, splenomegaly. Lymphatic: No adenopathy, tenderness. Musculoskeletal/Extremities: Normal inspection. FROM of all extremities, normal capillary refill. Pelvis Stable. No CVA tenderness. No tenderness to extremities, pedal edema, swelling, erythema or deformity. Integumentary: Maculopapular rash to bilateral cheeks. Neurologic: fast foods worker II-XII intact. Fully oriented, alert. Appropriate mood/affect. Motor strength 5/5. No appreciable EOM palsy, facial droop or sensory deficit. Past History - Past Medical History Allergies/Adverse Reactions: Allergies Allergy/AdvReac Type Severity Reaction Status Date / Time No Known Allergies Allergy Verified 10/26/18 23:57 Home Medications: Ambulatory Orders NK [No Known Home Medication] 11/18/17 Asthma: Yes COPD: No - Reproductive History (#): 1 - Immunization History Immunization Up to Date: No - Suicide/Smoking/Psychosocial Hx Smoking History: Unknown if ever smoked Have you smoked in the past 12 months: No Hx Alcohol Use: No Drug/Substance Use Hx: No Substance Use Type: None *Physical Exam - Vital Signs Last Vital Signs Temp Pulse Resp BP Pulse Ox 97.9 F 78 20 109/67 99 10/26/18 23:10 10/26/18 23:10 10/26/18 23:10 10/26/18 23:10 10/26/18 23:10 Moderate Sedation - Procedure Monitoring Vital Signs: Procedure Monitoring Vital Signs Temperature 97.9 F 10/26/18 23:10 Pulse Rate 78 10/26/18 23:10 Respiratory Rate 20 10/26/18 23:10 Blood Pressure 109/67 10/26/18 23:10 O2 Sat by Pulse Oximetry (%) 99 10/26/18 23:10 Medical Decision Making - Medical Decision Making 10/27/18 00:27 A/P: 23-year-old woman with facial rash after eating [place] food Pruritic maculopapular rash present to malor region bilaterally No stridor, oral edema, drooling or wheezing present Possible new ALLERGY versus cross-contamination with nuts. Loratadine 10 mg orally now Zantac 150 mg orally now Patient is breast-feeding and pump and dump procedure has been explained to the patient was verbalized understanding. 10/27/18 01:35 Rashes improved. Patient itching less. I will discharge the patient home. Polyp and dump reinforced with patient was verbalize understanding the second time. *DC/Admit/Observation/Transfer Diagnosis at time of Disposition: Rash of face - Discharge Dispostion Disposition: HOME Condition at time of disposition: Fair Decision to Admit order: No - Referrals - Patient Instructions Additional Instructions: Pump breastmilk 2 times before and restarting breast-feeding. Doorway the breastmilk you pump. Follow-up to primary doctor for reevaluation the next 4 days. Return to emergency department for any shortness of breath, nausea, worsening rash, difficulty swallowing, wheezing or for any other concerns. - Post Discharge Activity
[2018-10-27] MEDS ORDERED: RANITIDINE HCL 150 MG TABLET (FP) ONE (00:53)
[2018-10-27] MEDS ORDERED: LORATADINE 10 MG TABLET ONE (00:53)
== END 2018-10-27 01:44 | disposition home or self-care (01) ==
LOC: JER 23:02
DX: R21 Rash and other nonspecific skin eruption (principal); Z91.010 Allergy to peanuts
CPT/HCPCS: 99281-25

== ENCOUNTER 2019-07-16 11:00 | Emergency (ER) | payer SELFPAY ==
[2019-07-16] MEDS ORDERED: IBUPROFEN 600 MG TABLET (FP) PO ONE ×2 (11:15→11:22)
[2019-07-16 11:20] VITALS: BP 138/87; PULSE 80; TEMP 98.9; BMI 29.8
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
[2019-07-16] MEDS ORDERED: ACETAMINOPHEN 325 MG TABLET (FP) PO ONE (12:14)
[2019-07-16] MEDS ORDERED: ACETAMINOPHEN 325 MG TABLET (FP) ONE (12:16)
== END 2019-07-16 12:41 | disposition home or self-care (01) ==
LOC: FER 11:00
DX: S00.83XA Contusion of other part of head, initial encounter (principal); Y04.2XXA Assault by strike against or bumped into by another person, initial encounter; Y93.89 Activity, other specified; Y92.89 Other specified places as the place of occurrence of the external cause; Z91.010 Allergy to peanuts
CPT/HCPCS: 70450-TC; 70486-TC; 99282-25